=== PATIENT | male | born 1935 | race Caucasian/White ===

== ENCOUNTER 2016-12-02 16:33 | Inpatient (IN) | payer MEDICARE, OTHER ==
[~2016-12-02] VITALS: Ht 182.9 cm; Wt 113.8 kg
[2016-12-02 19:39] LABS: Basophils # (auto) 0.1 uL; Basophils % (auto) 0.8 % (0.0-2.0); CONDITION Y; Eosinophils # (auto) 0.4 uL; Eosinophils % (auto) 3.3 % (0.0-7.0); Hematocrit 35.3 % (41.0-53.0); Hemoglobin 11.7 g/dL (13.5-17.5); Lymphocytes # (auto) 1.1 uL; Lymphocytes % (auto) 9.5 % (10.0-50.0); Mean Corpuscular Hemoglobin 30.6 pg (28.0-32.0); Mean Corpuscular Hgb Conc. 33.2 g/dL (32.0-36.0); Mean Corpuscular Volume 92.2 fL (80.0-100.0); Mean Platelet Volume 9.6 fL (7.4-10.4); Monocytes # (auto) 1.2 uL; Monocytes % (auto) 10.7 % (0.0-12.0); Neutrophils # (auto) 8.7 uL; Neutrophils % (auto) 75.7 % (37.0-80.0); Platelet Count (auto) 229 10^3/uL (140-450); Red Cell Distribution Width 15.1 % (11.6-16.0); White Blood Cell 11.6 10^3/uL (4.4-10.8)
[2016-12-02 20:01] LABS: Albumin 2.4 g/dL (3.4-5.0); Calcium 8.1 mg/dL (8.5-10.1); Magnesium 2.5 mg/dL (1.6-2.6); Potassium 5.2 mmol/L (3.5-5.1)
[2016-12-02 20:03] LABS: BUN/Creatinine Ratio 13.5
[2016-12-02 20:06] LABS: INR 0.95 (0.9-1.15); Partial Thromboplastin Time 21.6 sec (22.64-33.71); Prothrombin Time 10.4 sec (9.37-12.3)
[2016-12-02 20:08] LABS: Bilirubin, Total 0.3 mg/dL (0.2-1.0); Total Protein 6.4 g/dL (6.4-8.2)
[2016-12-02 20:16] LABS: B-Type Natriuretic Peptide 398.91 pg/mL (0-100)
[2016-12-02 20:17] LABS: Temperature: 23.3 C (20.0-25.0)
[2016-12-02] MEDS ORDERED: cefTRIAXone 1GM/50ML D5W 50 ML IV ONE (22:30)
[2016-12-02] MEDS ORDERED: FUROSEMIDE 40 MG/4 ML VIAL IV ONE (22:30)
[2016-12-02] MEDS ORDERED: METOPROLOL TARTRATE 1MG/1ML-5ML VIAL IV ONE (22:30)
[2016-12-02] MEDS ORDERED: PANTOPRAZOLE 40 MG/10 ML VIAL IV ONE (22:30)
[2016-12-02] MEDS ORDERED: ASPirin 81 mg TAB PO ONE (22:30)
[2016-12-02] MEDS ORDERED: NITROGLYCERIN 0.4 MG SL TAB SL PRN (22:45)
[2016-12-02] MEDS ORDERED: LACTULOSE 20Gm/30ML SOLN PO PRN (22:45)
[2016-12-02] MEDS ORDERED: MORPHINE SULF INJ 2 MG/ML SYRINGE 1ML IV PRN (22:45)
[2016-12-03] MEDS: LORazepam 2MG/ML-1ML VIAL IV PRN (00:21)
[2016-12-03 06:34] LABS: Basophils # (auto) 0.1 uL; Basophils % (auto) 1.1 % (0.0-2.0); CONDITION Y; Eosinophils # (auto) 0.5 uL; Eosinophils % (auto) 5.4 % (0.0-7.0); Hematocrit 33.1 % (41.0-53.0); Hemoglobin 11.3 g/dL (13.5-17.5); Lymphocytes # (auto) 1.3 uL; Lymphocytes % (auto) 15.1 % (10.0-50.0); Mean Corpuscular Hemoglobin 31.3 pg (28.0-32.0); Mean Corpuscular Volume 92.1 fL (80.0-100.0); Mean Platelet Volume 9.4 fL (7.4-10.4); Monocytes % (auto) 11.9 % (0.0-12.0); Neutrophils # (auto) 5.8 uL; Neutrophils % (auto) 66.5 % (37.0-80.0); Platelet Count (auto) 216 10^3/uL (140-450); Red Cell Distribution Width 15.3 % (11.6-16.0); White Blood Cell 8.7 10^3/uL (4.4-10.8)
[2016-12-03 07:06] LABS: Albumin 2.2 g/dL (3.4-5.0); B-Type Natriuretic Peptide 509.2 pg/mL (0-100); BUN/Creatinine Ratio 13.1; Bilirubin, Total 0.3 mg/dL (0.2-1.0); Potassium 4.3 mmol/L (3.5-5.1); Total Protein 5.9 g/dL (6.4-8.2)
[2016-12-03 07:40] LABS: Temperature: 22.2 C (20.0-25.0)
[2016-12-03] MEDS ORDERED: METOPROLOL TARTRATE 50 MG TAB PO SCH (10:00)
[2016-12-03] MEDS ORDERED: FUROSEMIDE 40 MG/4 ML VIAL IV SCH (10:00)
[2016-12-03] MEDS ORDERED: CARVEDILOL 12.5 MG TAB PO SCH (10:00)
[2016-12-03] MEDS ORDERED: ENALAPRIL MALEATE 10 MG TAB PO SCH (10:00)
[2016-12-03] MEDS: ASPirin 81 mg TAB PO SCH (10:38)
[2016-12-03] MEDS: CARVEDILOL 12.5 MG TAB PO SCH ×2 (10:38→22:16)
[2016-12-03] MEDS: PANTOPRAZOLE 40 MG/10 ML VIAL IV SCH (10:38)
[2016-12-03] MEDS: POTASSIUM CHL 20 Meq TABLET PO SCH (10:39)
[2016-12-03] MEDS: ENOXAPARIN SOD 30 MG/0.3 ML SYRINGE SC SCH (10:39)
[2016-12-03] MEDS ORDERED: SODIUM CHLORIDE 0.9% 250 ML IV ONE (14:00)
[2016-12-03] MEDS: SODIUM CHLORIDE 0.9% 1,000 ML IV SCH (17:50)
[2016-12-03 20:32] LABS: BUN/Creatinine Ratio 13.4; Calcium 7.3 mg/dL (8.5-10.1); Potassium 4.7 mmol/L (3.5-5.1)
[2016-12-03] MEDS: cefTRIAXone 1GM/50ML D5W 50 ML IV SCH (21:00)
[2016-12-03] MEDS: ATORVASTATIN 20 MG TAB PO SCH (22:16)
[2016-12-04] MEDS: SODIUM CHLORIDE 0.9% 1,000 ML IV SCH ×3 (03:20→21:19)
[2016-12-04] MEDS: LORazepam 2MG/ML-1ML VIAL IV PRN (03:21)
[2016-12-04 07:03] LABS: Urine Bilirubin Negative (Negative); Urine Blood 2+ /uL (Negative); Urine Color Yellow (Yellow); Urine Glucose TRACE mg/dL (Normal); Urine Ketone Negative (Negative); Urine Mucus FEW (None Seen); Urine Nitrite Negative (Negative); Urine RBC 122 /hpf (0 - 3); Urine Urobilinogen Normal (Negative); Urine WBC Clumps PRESENT /hpf (None Seen); Urine pH 6.5 (5.0-8.0)
[2016-12-04 07:32] LABS: Basophils # (auto) 0.1 uL; Basophils % (auto) 0.6 % (0.0-2.0); CONDITION Y; DEFINITIVE SEE PRINTOUT; Eosinophils # (auto) 0.7 uL; Eosinophils % (auto) 4.7 % (0.0-7.0); Hematocrit 36.1 % (41.0-53.0); Lymphocytes # (auto) 0.9 uL; Lymphocytes % (auto) 6.3 % (10.0-50.0); Mean Corpuscular Hemoglobin 30.9 pg (28.0-32.0); Mean Corpuscular Hgb Conc. 33.2 g/dL (32.0-36.0); Mean Corpuscular Volume 93.1 fL (80.0-100.0); Mean Platelet Volume 9.6 fL (7.4-10.4); Monocytes # (auto) 1.6 uL; Monocytes % (auto) 11.5 % (0.0-12.0); Neutrophils # (auto) 10.9 uL; Neutrophils % (auto) 76.9 % (37.0-80.0); Platelet Count (auto) 228 10^3/uL (140-450); Red Cell Distribution Width 15.1 % (11.6-16.0); White Blood Cell 14.2 10^3/uL (4.4-10.8)
[2016-12-04 07:54] LABS: Albumin 2.2 g/dL (3.4-5.0); BUN/Creatinine Ratio 13.2; Bilirubin, Total 0.2 mg/dL (0.2-1.0); Calcium 7.8 mg/dL (8.5-10.1); Magnesium 2.5 mg/dL (1.6-2.6); Phosphorus 5.2 mg/dL (2.5-4.90); Total Protein 6.2 g/dL (6.4-8.2); Uric Acid 5.9 mg/dL (3.5-7.2)
[2016-12-04] MEDS: ASPirin 81 mg TAB PO SCH (10:00)
[2016-12-04] MEDS: PANTOPRAZOLE 40 MG/10 ML VIAL IV SCH (10:00)
[2016-12-04] MEDS: ENOXAPARIN SOD 30 MG/0.3 ML SYRINGE SC SCH (10:00)
[2016-12-04] MEDS: CARVEDILOL 12.5 MG TAB PO SCH ×2 (10:00→21:18)
[2016-12-04] MEDS: POTASSIUM CHL 20 Meq TABLET PO SCH (10:00)
[2016-12-04] MEDS: cefTRIAXone 1GM/50ML D5W 50 ML IV SCH (21:17)
[2016-12-04] MEDS: ATORVASTATIN 20 MG TAB PO SCH (21:18)
[2016-12-04 22:00] VITALS: BP 113/78
[2016-12-05 05:00] VITALS: BP 140/78
[2016-12-05 05:56] LABS: Basophils # (auto) 0.1 uL; Basophils % (auto) 0.4 % (0.0-2.0); CONDITION Y; DEFINITIVE SEE PRINTOUT; Eosinophils # (auto) 0.4 uL; Eosinophils % (auto) 3.2 % (0.0-7.0); Hematocrit 34.4 % (41.0-53.0); Hemoglobin 11.4 g/dL (13.5-17.5); Lymphocytes % (auto) 6.9 % (10.0-50.0); Mean Corpuscular Hgb Conc. 33.1 g/dL (32.0-36.0); Mean Corpuscular Volume 93.7 fL (80.0-100.0); Mean Platelet Volume 10.1 fL (7.4-10.4); Monocytes # (auto) 1.8 uL; Monocytes % (auto) 12.8 % (0.0-12.0); Neutrophils # (auto) 10.7 uL; Neutrophils % (auto) 76.7 % (37.0-80.0); Platelet Count (auto) 217 10^3/uL (140-450)
[2016-12-05 06:18] LABS: Calcium 7.7 mg/dL (8.5-10.1); Magnesium 2.4 mg/dL (1.6-2.6)
[2016-12-05 06:23] LABS: BUN/Creatinine Ratio 12.4
[2016-12-05 08:00] VITALS: BP_SYST 132; BP_SYST 133; BP_DIAS 64; BP_DIAS 79
[2016-12-05] MEDS: PANTOPRAZOLE 40 MG/10 ML VIAL IV SCH (10:01)
[2016-12-05] MEDS: ASPirin 81 mg TAB PO SCH (10:01)
[2016-12-05] MEDS: CARVEDILOL 12.5 MG TAB PO SCH ×2 (10:02→22:54)
[2016-12-05] MEDS: ENOXAPARIN SOD 30 MG/0.3 ML SYRINGE SC SCH (10:02)
[2016-12-05] MEDS: LORazepam 2MG/ML-1ML VIAL IV PRN ×2 (10:02→19:51)
[2016-12-05] MEDS: POTASSIUM CHL 20 Meq TABLET PO SCH (10:02)
[2016-12-05 12:00] VITALS: BP 137/81
[2016-12-05 16:47] VITALS: BP 117/69
[2016-12-05] MEDS: SODIUM CHLORIDE 0.9% 1,000 ML IV SCH (19:20)
[2016-12-05] MEDS: cefTRIAXone 1GM/50ML D5W 50 ML IV SCH (20:37)
[2016-12-05 22:00] VITALS: BP 106/87
[2016-12-05] MEDS: ATORVASTATIN 20 MG TAB PO SCH (22:54)
[2016-12-06 05:00] VITALS: BP 118/75
[2016-12-06 06:51] LABS: BUN/Creatinine Ratio 13.5; Calcium 8.2 mg/dL (8.5-10.1); Potassium 5.1 mmol/L (3.5-5.1)
[2016-12-06 07:55] VITALS: BP 144/87
[2016-12-06 09:00] VITALS: BP 144/87
[2016-12-06] MEDS: CARVEDILOL 12.5 MG TAB PO SCH ×2 (09:55→22:15)
[2016-12-06] MEDS: PANTOPRAZOLE 40 MG/10 ML VIAL IV SCH (09:55)
[2016-12-06] MEDS: ASPirin 81 mg TAB PO SCH (09:55)
[2016-12-06] MEDS: POTASSIUM CHL 20 Meq TABLET PO SCH (09:55)
[2016-12-06] MEDS: SODIUM CHLORIDE 0.9% 1,000 ML IV SCH ×2 (09:55→22:00)
[2016-12-06] MEDS: ENOXAPARIN SOD 30 MG/0.3 ML SYRINGE SC SCH (09:56)
[2016-12-06] MEDS: LORazepam 2MG/ML-1ML VIAL IV PRN ×2 (09:56→20:38)
[2016-12-06] MEDS ORDERED: CAR125T PO (12:22)
[2016-12-06] MEDS ORDERED: LORA2TAB89 PO (12:22)
[2016-12-06] MEDS ORDERED: PRAS5TAB3 PO (12:22)
[2016-12-06 13:00] VITALS: BP 109/62
[2016-12-06 17:00] VITALS: BP 125/79
[2016-12-06] MEDS ORDERED: DUTACAP PO (19:01)
[2016-12-06] MEDS ORDERED: ATOR10TA52 PO (19:01)
[2016-12-06] MEDS ORDERED: VORT1TAB PO (19:01)
[2016-12-06] MEDS ORDERED: ASPI81TA27 PO (19:01)
[2016-12-06] MEDS ORDERED: DIVA250T3 PO (19:01)
[2016-12-06] MEDS: cefTRIAXone 1GM/50ML D5W 50 ML IV SCH (20:38)
[2016-12-06 21:30] VITALS: BP 140/68
[2016-12-06] MEDS: ATORVASTATIN 20 MG TAB PO SCH (22:16)
[2016-12-07] VITALS (7 sets, daily range): BP systolic 120–138; BP diastolic 63–81
[2016-12-07 05:28] LABS: Basophils # (auto) 0.1 uL; Basophils % (auto) 0.3 % (0.0-2.0); CONDITION Y; Eosinophils # (auto) 0.4 uL; Eosinophils % (auto) 2.1 % (0.0-7.0); Hematocrit 34.7 % (41.0-53.0); Hemoglobin 11.4 g/dL (13.5-17.5); Lymphocytes # (auto) 0.6 uL; Lymphocytes % (auto) 3.2 % (10.0-50.0); Mean Corpuscular Hgb Conc. 32.9 g/dL (32.0-36.0); Mean Corpuscular Volume 94.2 fL (80.0-100.0); Mean Platelet Volume 10.2 fL (7.4-10.4); Monocytes # (auto) 1.5 uL; Monocytes % (auto) 8.3 % (0.0-12.0); Neutrophils # (auto) 15.9 uL; Neutrophils % (auto) 86.1 % (37.0-80.0); Platelet Count (auto) 216 10^3/uL (140-450); Red Cell Distribution Width 15.6 % (11.6-16.0); White Blood Cell 18.5 10^3/uL (4.4-10.8)
[2016-12-07 05:52] LABS: Calcium 8.5 mg/dL (8.5-10.1); Potassium 5.4 mmol/L (3.5-5.1)
[2016-12-07 06:11] LABS: BUN/Creatinine Ratio 14.2
[2016-12-07 09:20] LABS: Hepatitis B Surface Antibody Negative
[2016-12-07] MEDS: PANTOPRAZOLE 40 MG/10 ML VIAL IV SCH (09:42)
[2016-12-07] MEDS: POTASSIUM CHL 20 Meq TABLET PO SCH (09:43)
[2016-12-07] MEDS: ASPirin 81 mg TAB PO SCH (09:43)
[2016-12-07] MEDS: CARVEDILOL 12.5 MG TAB PO SCH ×2 (09:43→22:30)
[2016-12-07] MEDS: ENOXAPARIN SOD 30 MG/0.3 ML SYRINGE SC SCH (09:44)
[2016-12-07] MEDS: SOD CHL 0.45% 1,000 ML IV SCH ×2 (10:29→17:14)
[2016-12-07] MEDS ORDERED: FLUCONAZOLE 200MG/100ML 100 ML IV ONE (13:30)
[2016-12-07] MEDS: cefTRIAXone 1GM/50ML D5W 50 ML IV SCH (20:53)
[2016-12-07] MEDS: ATORVASTATIN 20 MG TAB PO SCH (22:29)
[2016-12-08] VITALS (8 sets, daily range): BP systolic 107–138; BP diastolic 61–88
[2016-12-08] MEDS: SOD CHL 0.45% 1,000 ML IV SCH ×3 (01:30→17:30)
[2016-12-08 06:49] LABS: Basophils # (auto) 0.1 uL; Basophils % (auto) 0.6 % (0.0-2.0); CONDITION Y; Eosinophils # (auto) 0.7 uL; Eosinophils % (auto) 4.9 % (0.0-7.0); Hematocrit 32.8 % (41.0-53.0); Hemoglobin 10.9 g/dL (13.5-17.5); Lymphocytes # (auto) 0.8 uL; Lymphocytes % (auto) 5.8 % (10.0-50.0); Mean Corpuscular Hemoglobin 31.1 pg (28.0-32.0); Mean Corpuscular Hgb Conc. 33.2 g/dL (32.0-36.0); Mean Corpuscular Volume 93.9 fL (80.0-100.0); Mean Platelet Volume 10.3 fL (7.4-10.4); Monocytes # (auto) 1.3 uL; Monocytes % (auto) 9.4 % (0.0-12.0); Neutrophils # (auto) 10.7 uL; Neutrophils % (auto) 79.3 % (37.0-80.0); Platelet Count (auto) 236 10^3/uL (140-450); Red Cell Distribution Width 15.7 % (11.6-16.0); White Blood Cell 13.5 10^3/uL (4.4-10.8)
[2016-12-08 07:10] LABS: Calcium 8.3 mg/dL (8.5-10.1); Magnesium 2.8 mg/dL (1.6-2.6); Potassium 5.4 mmol/L (3.5-5.1)
[2016-12-08 07:19] LABS: BUN/Creatinine Ratio 14.9
[2016-12-08] MEDS: PANTOPRAZOLE 40 MG/10 ML VIAL IV SCH (11:38)
[2016-12-08] MEDS: ASPirin 81 mg TAB PO SCH (11:40)
[2016-12-08] MEDS: CARVEDILOL 12.5 MG TAB PO SCH ×2 (11:40→22:15)
[2016-12-08] MEDS: ENOXAPARIN SOD 30 MG/0.3 ML SYRINGE SC SCH (11:41)
[2016-12-08] MEDS: FLUCONAZOLE 100MG/50ML 50 ML IV SCH (11:41)
[2016-12-08] MEDS: LORazepam 2MG/ML-1ML VIAL IV PRN ×2 (15:02→23:26)
[2016-12-08] MEDS: cefTRIAXone 1GM/50ML D5W 50 ML IV SCH (20:42)
[2016-12-08] MEDS: ATORVASTATIN 20 MG TAB PO SCH (22:16)
[2016-12-09] VITALS (8 sets, daily range): BP systolic 112–147; BP diastolic 56–92
[2016-12-09] MEDS: SOD CHL 0.45% 1,000 ML IV SCH ×4 (05:51→18:36)
[2016-12-09 09:03] LABS: Basophils # (auto) 0 uL; Basophils % (auto) 0.3 % (0.0-2.0); CONDITION Y; Eosinophils # (auto) 0.6 uL; Eosinophils % (auto) 4.9 % (0.0-7.0); Hematocrit 35.9 % (41.0-53.0); Hemoglobin 11.7 g/dL (13.5-17.5); Lymphocytes # (auto) 0.7 uL; Lymphocytes % (auto) 5.2 % (10.0-50.0); Mean Corpuscular Hemoglobin 30.7 pg (28.0-32.0); Mean Corpuscular Hgb Conc. 32.6 g/dL (32.0-36.0); Mean Corpuscular Volume 94.2 fL (80.0-100.0); Mean Platelet Volume 10.2 fL (7.4-10.4); Monocytes # (auto) 1.3 uL; Monocytes % (auto) 9.7 % (0.0-12.0); Neutrophils # (auto) 10.4 uL; Neutrophils % (auto) 79.9 % (37.0-80.0); Platelet Count (auto) 240 10^3/uL (140-450); Red Cell Distribution Width 15.6 % (11.6-16.0)
[2016-12-09 09:05] LABS: BUN/Creatinine Ratio 16.2; Calcium 8.7 mg/dL (8.5-10.1); Magnesium 2.9 mg/dL (1.6-2.6); Potassium 5.3 mmol/L (3.5-5.1)
[2016-12-09] MEDS: ENOXAPARIN SOD 30 MG/0.3 ML SYRINGE SC SCH ×2 (10:00→10:12)
[2016-12-09] MEDS: ASPirin 81 mg TAB PO SCH (10:12)
[2016-12-09] MEDS: PANTOPRAZOLE 40 MG/10 ML VIAL IV SCH (10:12)
[2016-12-09] MEDS: FLUCONAZOLE 100MG/50ML 50 ML IV SCH (10:13)
[2016-12-09] MEDS: CARVEDILOL 12.5 MG TAB PO SCH ×2 (10:13→21:34)
[2016-12-09] MEDS: LORazepam 2MG/ML-1ML VIAL IV PRN (21:24)
[2016-12-09] MEDS: cefTRIAXone 1GM/50ML D5W 50 ML IV SCH (21:24)
[2016-12-09] MEDS: ATORVASTATIN 20 MG TAB PO SCH (21:35)
[2016-12-10] MEDS: SOD CHL 0.45% 1,000 ML IV SCH ×2 (05:29→09:33)
[2016-12-10 05:30] VITALS: BP 163/101
[2016-12-10 08:00] VITALS: BP 152/90
[2016-12-10 09:16] LABS: Basophils # (auto) 0.1 uL; Basophils % (auto) 0.4 % (0.0-2.0); CONDITION Y; Eosinophils # (auto) 0.6 uL; Eosinophils % (auto) 3.9 % (0.0-7.0); Hematocrit 37.1 % (41.0-53.0); Hemoglobin 12.3 g/dL (13.5-17.5); Lymphocytes # (auto) 0.6 uL; Lymphocytes % (auto) 3.8 % (10.0-50.0); Mean Corpuscular Hemoglobin 30.9 pg (28.0-32.0); Mean Corpuscular Volume 93.7 fL (80.0-100.0); Mean Platelet Volume 9.9 fL (7.4-10.4); Monocytes # (auto) 1.2 uL; Monocytes % (auto) 8.4 % (0.0-12.0); Neutrophils # (auto) 12.1 uL; Neutrophils % (auto) 83.5 % (37.0-80.0); Platelet Count (auto) 272 10^3/uL (140-450); Red Cell Distribution Width 15.1 % (11.6-16.0); White Blood Cell 14.4 10^3/uL (4.4-10.8)
[2016-12-10 09:37] LABS: BUN/Creatinine Ratio 16.5; Calcium 8.4 mg/dL (8.5-10.1); Magnesium 2.7 mg/dL (1.6-2.6); Potassium 4.9 mmol/L (3.5-5.1)
[2016-12-10] MEDS: PANTOPRAZOLE 40 MG/10 ML VIAL IV SCH (09:45)
[2016-12-10] MEDS ORDERED: cloNIDine HCL 0.1 MG TAB PO ONE (09:45)
[2016-12-10] MEDS: ASPirin 81 mg TAB PO SCH (09:46)
[2016-12-10] MEDS: ENOXAPARIN SOD 30 MG/0.3 ML SYRINGE SC SCH (09:47)
[2016-12-10] MEDS: CARVEDILOL 12.5 MG TAB PO SCH (09:47)
[2016-12-10] MEDS: FLUCONAZOLE 100MG/50ML 50 ML IV SCH (09:48)
[2016-12-10 09:59] VITALS: BP 151/97
[2016-12-10] MEDS ORDERED: FLUCONAZOLE 100 MG TAB PO ONE (10:00)
[2016-12-10 12:53] VITALS: BP 151/91
[2016-12-10 16:56] VITALS: BP 152/101
== END 2016-12-10 17:05 | disposition hospice, home (50) | DRG 682 ==
LOC: EDBD 16:33 → ER 16:40 → TELE 16:41 → TELE-WESTW 12-04 18:25
PROVIDERS: ADMIT Family Medicine; ATTEND Internal Medicine
DX: N17.9 Acute kidney failure, unspecified (principal); G93.41 Metabolic encephalopathy; I50.43 Acute on chronic combined systolic (congestive) and diastolic (congestive) heart failure; E87.2 Acidosis; B49 Unspecified mycosis; I48.2 Chronic atrial fibrillation; I24.8 Other forms of acute ischemic heart disease; I42.9 Cardiomyopathy, unspecified; I13.2 Hypertensive heart and chronic kidney disease with heart failure and with stage 5 chronic kidney disease, or end stage renal disease; N13.8 Other obstructive and reflux uropathy; N39.0 Urinary tract infection, site not specified; F31.30 Bipolar disorder, current episode depressed, mild or moderate severity, unspecified; W18.39XA Other fall on same level, initial encounter; N18.6 End stage renal disease; E66.01 Morbid (severe) obesity due to excess calories; D63.8 Anemia in other chronic diseases classified elsewhere; Z96.653 Presence of artificial knee joint, bilateral; N40.1 Benign prostatic hyperplasia with lower urinary tract symptoms; I25.10 Atherosclerotic heart disease of native coronary artery without angina pectoris; I70.0 Atherosclerosis of aorta; I25.2 Old myocardial infarction; Z68.34 Body mass index [BMI] 34.0-34.9, adult; Z82.49 Family history of ischemic heart disease and other diseases of the circulatory system; Z83.3 Family history of diabetes mellitus; Z91.19 Patient's noncompliance with other medical treatment and regimen; Z95.1 Presence of aortocoronary bypass graft; Z95.5 Presence of coronary angioplasty implant and graft; Z99.2 Dependence on renal dialysis; Y93.89 Activity, other specified; Y92.098 Other place in other non-institutional residence as the place of occurrence of the external cause; Y99.8 Other external cause status
CPT/HCPCS: 36415; 51702; 70450; 71010; 76775; 80048; 80053; 80061; 80320; 81001; 82306; 83735; 83880; 83970; 84100; 84443; 84484; 84550; 85025; 85610; 85730; 86706; 86803; 87086; 87340; 93005; 93306; 94761; 96365; 96375; 96376; 97110; 97163; 97530; C9113; J0696; J1450